=== PATIENT | male | born 1950 | race Caucasian/White ===

== ENCOUNTER 2018-09-19 04:57 | Inpatient (IN) ==
[2018-09-12 13:45] LABS: Appearance,Urine CLEAR; Bacteria,Urine 0 /hpf (0); Bilirubin,Urine NEG (NEG); Color,Urine YELLOW; Glucose,Urine (UA) NEGATIVE (NEG); Leukocyte Esterase,Urine NEG /uL (NEG); Mucus,Urine MANY /hpf (0); Protein,Urine 30 mg/dL (NEG); Specific Gravity,Urine 1.026 (1.000-1.035); Urine Blood NEG mg/dL (<0.03); Urine Hyaline Cast 2 /lpf (0-2); Urine RBC < 1 /hpf (0-1); Urine Squamous Epithelial Cell 2 /hpf (0-4); Urine Transitional Epi Cells < 1 /hpf (0-2); Urine WBC 2 /hpf (0-4); Urobilinogen,Urine NEG (NEG)
[2018-09-12 14:48] LABS: Basophils # (Auto) 0.1 K/mcL (0.0-0.3); Basophils % (Auto) 1.2 % (0.0-2.0); Eosinophils # (Auto) 0.3 K/mcL (0.0-0.7); Eosinophils % (Auto) 6.8 % (0.0-7.0); Granulocytes % (Auto) 71.2 % (38.0-78.0); Lymphocytes # (Auto) 0.5 K/mcL (1.5-4.8); Lymphocytes % (Auto) 11.9 % (15.5-49.0); Mean Cell Volume 85.3 fL (80.0-100.0); Mean Corpuscular HGB Conc 33.9 g/dL (31.0-36.0); Monocytes # (Auto) 0.4 K/mcL (0.1-0.9); Monocytes % (Auto) 8.9 % (1.0-12.0); Platelet Count 232 K/mcL (140-440); RBC 4.73 M/mcL (4.50-5.90); Red Cell Distribution Width 13.4 % (11.5-14.5)
[2018-09-12 14:52] LABS: Blood Urea Nitrogen 18 mg/dl (8-23)
[2018-09-19] MEDS ORDERED: ceFAZolin 2 GM in DEXTROSE 5% IN WATER 50 ML IV SCH (06:00)
[2018-09-19] MEDS ORDERED: oxyCODONE 10 MG TAB.ER.12H PO SCH (06:00)
[2018-09-19] MEDS ORDERED: PREGABALIN 75 MG CAPSULE PO SCH (06:00)
[2018-09-19] MEDS ORDERED: CELECOXIB 200 MG CAPSULE PO SCH (06:00)
[2018-09-19] MEDS ORDERED: 0.9 % SODIUM CHLORIDE 9 ML, KETOROLAC 30 MG, ROPIVACAINE HCL/PF 49.5 ML, EPINEPHrine 0.... IJ SCH (06:00)
[2018-09-19] MEDS ORDERED: GENTAMICIN SULFATE 800 MG/20 ML VIAL IR ONE (06:52)
[2018-09-19] MEDS ORDERED: ROPIVACAINE HCL/PF 20 ML VIAL IJ ONE (07:30)
[2018-09-19] MEDS ORDERED: LIDOCAINE HCL/PF 100 MG/5 ML SYRINGE IV ONE (07:30)
[2018-09-19] MEDS ORDERED: DEXAMETHASONE 4 MG/ML VIAL IV ONE (07:30)
[2018-09-19] MEDS ORDERED: PROPOFOL 200 MG/20 ML VIAL IV ONE (07:30)
[2018-09-19] MEDS ORDERED: ONDANSETRON 4 MG/2 ML VIAL IV ONE (07:30)
[2018-09-19] MEDS ORDERED: TRANEXAMIC ACID 1,000 MG/10 ML VIAL IV ONE (07:30)
[2018-09-19] MEDS ORDERED: MIDAZOLAM 5 MG/5 ML VIAL IV ONE (07:30)
[2018-09-19] MEDS ORDERED: ePHEDrine 50 MG/ML AMPUL IV ONE (07:30)
[2018-09-19] MEDS ORDERED: PHENYLEPHRINE 10 MG/ML VIAL IV ONE (07:30)
--- NOTE | 2018-09-19 09:35 | Brief Operative Note ---
Date of procedure: 09/19/18 Pre-op diagnosis: right knee osteoarthritis Post-op diagnosis: same Procedure: right total knee arthroplasty Grafts/Implants: Yes Anesthesia: spinal Complications: none Surgeon: Manjit Tim Calculus Professor: Anastasiya Madden Tourniquet Time (Minutes): 72 Specimens Removed/Pathology: none sent Condition: stable Disposition: PACU
[2018-09-19] MEDS ORDERED: FLEETS ADULT ENEMA PR PRN (09:36)
[2018-09-19] MEDS ORDERED: DEXTROSE 50% 50 ML VIAL IV PRN (09:36)
[2018-09-19] MEDS ORDERED: TRANEXAMIC ACID 1,000 MG/10 ML VIAL IV SCH (09:36)
[2018-09-19] MEDS ORDERED: MAGNESIUM HYDROXIDE 30 ML ORAL.SUSP PO PRN (09:36)
[2018-09-19] MEDS ORDERED: POLYETHYLENE GLYCOL 3350 17 GM PACKET PO PRN (09:36)
[2018-09-19] MEDS ORDERED: BISACODYL 10 MG SUPP.RECT PR PRN (09:36)
[2018-09-19] MEDS ORDERED: ONDANSETRON 4 MG/2 ML VIAL IV PRN ×2 (09:36→09:38)
[2018-09-19] MEDS ORDERED: DEXTROSE 31 GM ORAL.SUSP PO PRN (09:36)
[2018-09-19] MEDS ORDERED: BENZOCAINE/MENTHOL 1 LOZENGE PO PRN (09:36)
[2018-09-19] MEDS ORDERED: ONDANSETRON 4 MG ODT TABLET SL PRN (09:36)
[2018-09-19] MEDS ORDERED: MEPERIDINE 25 MG/ML SYRINGE IV PRN (09:38)
[2018-09-19] MEDS ORDERED: PROMETHAZINE 25 MG/ML VIAL IV PRN (09:38)
[2018-09-19] MEDS ORDERED: IPRATROPIUM/ALBUTEROL 3 ML AMPUL.NEB NEB PRN (09:38)
[2018-09-19] MEDS ORDERED: ACETAMINOPHEN 1,000 MG/100 ML BOTTLE IV ONE (09:38)
[2018-09-19] MEDS ORDERED: METHOCARBAMOL 1,000 MG/10 ML VIAL IV PRN (09:38)
[2018-09-19] MEDS ORDERED: fentaNYL 100 MCG/2 ML VIAL IV PRN (09:38)
[2018-09-19] MEDS ORDERED: LACTATED RINGERS 1,000 ML IV SCH (09:45)
--- NOTE | 2018-09-19 10:20 | XRay Report ---
CLINICAL INFORMATION: Postoperative follow-up TECHNIQUE: AP and crosstable lateral portable right knee COMPARISON: None. FINDINGS: Status post right total knee arthroplasty. Femoral and tibial components are in anatomic positions. There is postsurgical soft tissue and intra-articular gas. There is a focal density visualized only on AP view. This is at the lateral femoral tibial joint and is probably within extra-articular soft tissues rather than within the joint space. This could be calcification or methylmethacrylate IMPRESSION: Status post right total knee arthroplasty Interpreted and Authenticated by: Manjit Phelan 09/19/18
--- NOTE | 2018-09-19 10:44 | Operative Note ---
DATE OF OPERATION: 09/19/2018 PREOPERATIVE DIAGNOSIS: Degenerative joint disease, right knee. POSTOPERATIVE DIAGNOSIS: Degenerative joint disease, right knee. PROCEDURE: Right total knee arthroplasty. SURGEON: Bruce Tim M.D. EXPLOSIVES MIXER OPERATOR SURGEON: Anastasiya Madden PA-C. ANESTHESIA: Spinal with LMA assist. ESTIMATED BLOOD LOSS: 150 mL. COMPLICATIONS: None noted. SPECIMENS REMOVED: None. DRAINS: None. TOURNIQUET TIME: 72 minutes at 300 mmHg. IMPLANTS: DePuy Attune femoral posterior stabilized size 8 right, cemented; DePuy Attune tibial base fixed bearing size 7, cemented; DePuy Attune patella medialized dome 41 mm, cemented AOX; DePuy Attune tibial insert fixed bearing posterior stabilized size 8, 12 mm AOX; DePuy CMW2 gentamicin bone cement 20 grams x5. INDICATIONS: The patient has had a long-standing history of worsening pain in the knee that has failed conservative treatment. Radiographs have confirmed advanced degenerative joint disease. After a long discussion about treatment options, the patient elected to proceed with a knee arthroplasty. The risks and benefits were discussed with the patient in detail including, but not limited to, the risks of anesthesia, problems with the heart or lungs related to anesthesia, infection, compromise or injury to the nerves and blood vessels, deep venous thrombosis, pulmonary embolism, pneumonia, continued pain after surgery, worsening pain or symptoms after surgery, swelling, loss of motion, instability, leg length discrepancy, and need for repeat surgery. DESCRIPTION OF PROCEDURE: The patient was seen in the pre-anesthesia waiting room where all questions were answered and the correct side and site were identified and marked. The patient was transferred to the operating room and administered the anesthetic and given pre-operative antibiotics. A time-out was then called. The extremity was prepped and draped, exsanguinated, and the tourniquet was inflated to 300 mmHg. A midline skin incision was then made with a standard medial parapatellar arthrotomy. Debridement of the menisci, ACL, and PCL was performed followed by balancing releases in the medial lateral plane. We then established intramedullary access to both the femur and tibia in a standard fashion. The femoral guide carlton was initially placed with the distal femoral guide, pinned into place, and the distal femoral cut was performed and checked with a flat plate. We then turned our attention to the tibia. The intramedullary guide was placed with the proximal tibial cutting block. The block was appropriately positioned off the affected side, varus and valgus was checked with the extra-medullary guide, and the block was pinned into place. The proximal tibial cut was performed and the tibia was prepared for the tibial implant with appropriate rotation. The tibia, femur, and posterior compartment were debrided of osteophytes, loose bodies, and meniscal fragments We then used the gap balancing technique to balance extension with the first two cuts and good balancing was obtained with a 10 millimeter gap block. We turned our attention back to the femur and used the referencing block and implant to size appropriately. Using the gap balancing technique for the flexion space we set our rotation of the femur off the tibial cut. Anesthesia gave the patient 1 gram of Tranexamic Acid via an intravenous route. We placed the 4 in 1 cutting block and made anterior, posterior, and chamfer cuts. Box plasty cuts were then made in a standard fashion for the posterior stabilized prosthesis. We then completed osteophyte release and posterior capsule release from the posterior compartment. Trials were placed and we chose the polyethylene insert thickness that provided the best stability in all planes. With the trials in place, we did a measured resection for a resurfacing patella. We sized the patella and placed the patella trial and performed a lateral facetectomy with the saw and rongeur. Good tracking was obtained. We removed all trials, irrigated and dried all cut surfaces. We cemented the components into place including tibia, femur and patella. We placed a trial liner and held the knee in full extension with the patella compressed while the cement cured. We then removed all excess cement and placed the final polyethylene tibiofemoral component. Irrigation with 3 liters of antibiotic saline was then performed using jet-lavage. We let the tourniquet down and coagulated bleeding vessels. We injected a 100 cubic centimeter volume including Ropivacaine 49.25 cubic centimeters at 5 milligrams per cubic centimeter, Ketorolac 30 milligrams, and Epinephrine 0.5 milligrams into 100 cubic centimeters volume of normal saline. We closed the retinaculum with #2 Stratafix and 0 Vicryl. We closed the subcutaneous tissue and skin in layers out to Dermabond on the skin. A sterile pressure dressing was applied. All needle and sponge counts were correct. The patient was transferred to the recovery room in stable condition. NIKI:brigid Melvin: 09/19/2018 09:46:26 Job ID: [id number] Doc ID: [id number] Bruce Tim MD
[2018-09-19] MEDS: KETOROLAC 15 MG/ML VIAL IV SCH ×2 (11:36→17:23)
[2018-09-19] MEDS: HYDROcodone/APAP 10/325MG TABLET PO PRN ×2 (11:38→15:50)
[2018-09-19] MEDS: 0.9 % SODIUM CHLORIDE 1,000 ML IV SCH ×2 (11:40→18:38)
[2018-09-19] MEDS: INSULIN LISPRO 1 UNIT/0.01 ML UNIT SQ SCH ×3 (11:49→21:41)
[2018-09-19] MEDS: 0.9 % SODIUM CHLORIDE 10 ML SYRINGE IV SCH ×2 (15:42→21:53)
[2018-09-19] MEDS: ceFAZolin 1 GM VIAL IV SCH ×2 (15:42→22:26)
[2018-09-19] MEDS ORDERED: metFORMIN 500 MG TAB.XL.24H PO SCH (21:00)
[2018-09-19] MEDS ORDERED: TESTOSTERONE TOPICAL SCH (21:00)
[2018-09-19] MEDS ORDERED: SENNOSIDES 1 TABLET PO SCH (21:00)
[2018-09-19] MEDS: ASPIRIN 325 MG ENTERIC COATED TABLET PO SCH (21:29)
[2018-09-19] MEDS: DOCUSATE SODIUM 100 MG CAPSULE PO SCH (21:29)
[2018-09-20] MEDS: KETOROLAC 15 MG/ML VIAL IV SCH ×3 (00:15→11:46)
[2018-09-20] MEDS: HYDROcodone/APAP 10/325MG TABLET PO PRN ×5 (00:15→10:14)
[2018-09-20] MEDS: 0.9 % SODIUM CHLORIDE 1,000 ML IV SCH ×2 (01:04→09:56)
[2018-09-20] MEDS: METHOCARBAMOL 750 MG TABLET PO PRN ×2 (04:03→10:15)
[2018-09-20] MEDS: 0.9 % SODIUM CHLORIDE 10 ML SYRINGE IV SCH (05:20)
[2018-09-20] MEDS: INSULIN LISPRO 1 UNIT/0.01 ML UNIT SQ SCH ×2 (07:03→11:41)
--- NOTE | 2018-09-20 07:27 | Discharge Summary ---
Providers - Providers Patient information: Note initiated : 09/20/18 at 7:25 am Service Date, if different from initiated Date: [] Patient: Tee Torres 67 y/o M admitted on 09/19/18 for Right Total Knee Arthroplasty. Chief Complaint: [POD #1 s/p right TKA No pain. Denies CP, SOB, numbness, tingling. Ambulating well. ] Discharge date: 09/20/18 Hospitalization Hospital course: Patient was brought to OR on 09/19/18 for right TKA which went on without complication. Was then transferred to med surg floor for post op care. Will d/c to home today and follow up in 10-14 days for post op care Discharge diagnosis: knee osteoarthritis Exam - Exam Incision healing: Yes Incision draining: No Incision red: No Incision swollen: No Incision inflamed: No Clean and dry: Yes Weight bearing status: as tolerated Range of motion: full foot and ankle Ortho Discharge - TKA - Patient Instructions Diet: Regular Diet Activity: weight bearing as tolerated Total Knee Protocol: For Total Knee: Start ROM SUSSY with stationary bike or rocking chair. Work on gaining full extension of knee. Posterior dislocation precautions provided. Hip abductor strengthening and gait training instructions provided. Apply Cryocuff as instructed. Dressing Care: May shower in 2 days, Other (dermabond) Additional Instructions: CPM for home use. - Follow Up Plan Follow Up Appointments: Anastasiya Madden PA-C [Physician Account Executive Sales Representative] - 10/02/18 9:40 am Disposition: Home, Self-Care Prognosis: Good Rehab Potential: Good I certify that the patient requires SNF services: No Overall status at discharge: patient is progressing back to baseline - Orders For Discharge Prescriptions: Aspirin [Ecotrin] 325 mg PO BID #60 tab.ec HYDROcodone/APAP 10/325MG [[place] 10-325Mg] 1 - 2 tab PO Q4HP PRN #60 tab PRN Reason: Pain Level 3-6 Additional Discharge Orders: Physical Therapy at Discharge - TKA Location: None Selected CPM Discharge Order Location: None Selected Walker Location: None Selected Pending Studies Resuscitation Status Full Code Diet Regular Diet Start TueSep 19 0937 Hydrocodone Bitart/Acetaminophen ([place] 10/325mg) 0 tab PO Q4HP PRN PRN Reason: PAIN LEVEL 3-6 Last Admin: 09/20/18 05:56 Dose: 1 tab Documented by: Admin: 09/20/18 04:03 Dose: 1 tab Documented by: Admin: 09/20/18 00:15 Dose: 1 tab Documented by: Admin: 09/19/18 15:50 Dose: 1 tab Documented by: Admin: 09/19/18 11:38 Dose: 1 tab Documented by: PARESH Aspirin (Ecotrin) 325 mg PO BID [facility] Last Admin: 09/19/18 21:29 Dose: 325 mg Documented by: MANDA Diagnostic Test (Pha) (Accu-Chek) 1 each FS [facility] Last Admin: 09/20/18 06:50 Dose: 1 each Documented by: LANA Cosigned by: [email or web address] Admin: 09/19/18 21:32 Dose: 1 each Documented by: Admin: 09/19/18 17:24 Dose: 1 each Documented by: Admin: 09/19/18 11:44 Dose: 1 each Documented by: PARESH Docusate Sodium (Colace) 100 mg PO BID [facility] Last Admin: 09/19/18 21:29 Dose: 100 mg Documented by: MANDA Sodium Chloride (Sodium Chloride 0.9%) 1,000 mls @ 125 mls/hr IV .Q8H [facility] Last Admin: 09/20/18 01:04 Dose: Not Given Documented by: Admin: 09/19/18 18:38 Dose: Not Given Documented by: Admin: 09/19/18 11:40 Dose: 125 mls/hr Documented by: PARESH Insulin Human Lispro (Humalog) 0 unit SQ [facility]; Protocol Last Admin: 09/20/18 07:03 Dose: 2 unit Documented by: LANA Cosigned by: [email or web address] Admin: 09/19/18 21:41 Dose: 4 unit Documented by: Admin: 09/19/18 17:23 Dose: 4 unit Documented by: Admin: 09/19/18 11:49 Dose: 6 unit Documented by: [email or web address] Ketorolac Tromethamine (Toradol) 15 mg IV Q6 [facility] Stop: 09/21/18 06:01 Last Admin: 09/20/18 05:19 Dose: 15 mg Documented by: Admin: 09/20/18 00:15 Dose: 15 mg Documented by: Admin: 09/19/18 17:23 Dose: 15 mg Documented by: [email or web address] Admin: 09/19/18 11:36 Dose: 15 mg Documented by: [email or web address] Metformin HCl (Glucophage) 500 mg PO [facility] Last Admin: 09/19/18 21:30 Dose: 500 mg Documented by: MANDA Methocarbamol (Robaxin) 750 mg PO Q6HP PRN PRN Reason: Muscle Spasm Last Admin: 09/20/18 04:03 Dose: 750 mg Documented by: MANDA Testosterone [ Androgel] 1.25 Gm Gel 1 dose TOPICAL [facility] Last Admin: 09/19/18 21:52 Dose: Not Given Documented by: MANDA Senna (Senokot) 2 tab PO [facility] Last Admin: 09/19/18 21:29 Dose: 2 tab Documented by: MANDA Sodium Chloride (Saline Flush) 10 ml IV Q8 [facility] Last Admin: 09/20/18 05:20 Dose: 10 ml Documented by: Admin: 09/19/18 21:53 Dose: Not Given Documented by: Admin: 09/19/18 15:42 Dose: Not Given Documented by: [email or web address] Shift Summary 09/20/18 03:34 Shift Summary by Valeria Mendez Pt up to bathroom with SBA. Pt voiding QS. Pt receiving 1 [place] for pain. Last dose at 4am with Robaxin. Pt receiving scheduled Toradol. Pt in CPM for 4 hours up to 75 deg. Pt would like home CPM. Dr. Mccray aware and orders placed in EMR but paper order needs to be signed by MD on discharge. Pt ambulated in hallway last evening to nursing station and back. Will update with verbal report. Initialized on 09/20/18 03:34 - END OF NOTE
[2018-09-20] MEDS ORDERED: FLUTICASONE PROPIONATE SPRAY.NAS NS SCH (09:00)
[2018-09-20] MEDS ORDERED: amLODIPine 5 MG TABLET PO SCH (09:00)
[2018-09-20] MEDS ORDERED: LISINOPRIL 10 MG TABLET PO SCH (09:00)
[2018-09-20] MEDS: ASPIRIN 325 MG ENTERIC COATED TABLET PO SCH (09:24)
[2018-09-20] MEDS: DOCUSATE SODIUM 100 MG CAPSULE PO SCH (09:24)
== END 2018-09-20 12:30 | disposition home or self-care (01) | DRG 941 ==
LOC: MEDSUR 04:57
PROVIDERS: ADMIT Orthopaedic Surgery Sports Medicine; ATTEND Orthopaedic Surgery Sports Medicine

== ENCOUNTER 2018-12-19 10:48 | Inpatient (IN) ==
[2018-12-14 16:48] LABS: Basophils # (Auto) 0.1 K/mcL (0.0-0.3); Basophils % (Auto) 1.5 % (0.0-2.0); Eosinophils # (Auto) 0.3 K/mcL (0.0-0.7); Eosinophils % (Auto) 5.6 % (0.0-7.0); Granulocytes % (Auto) 69.6 % (38.0-78.0); Hematocrit 42.7 % (41.0-55.0); Hemoglobin 13.9 g/dL (13.5-16.5); Lymphocytes # (Auto) 0.7 K/mcL (1.5-4.8); Lymphocytes % (Auto) 13.9 % (15.5-49.0); Mean Cell Volume 84.8 fL (80.0-100.0); Mean Corpuscular HGB Conc 32.6 g/dL (31.0-36.0); Mean Platelet Volume 9.1 fL (7.4-10.4); Monocytes # (Auto) 0.5 K/mcL (0.1-0.9); Monocytes % (Auto) 9.4 % (1.0-12.0); Platelet Count 208 K/mcL (140-440); RBC 5.03 M/mcL (4.50-5.90); WBC 5.1 K/mcL (4.5-11.0)
[2018-12-14 16:48] LABS: Appearance,Urine CLEAR; Bilirubin,Urine NEG (NEG); Color,Urine YELLOW; Culture Indicated,Urine NO; Glucose,Urine (UA) NEGATIVE (NEG); Ketones,Urine NEG (NEG); Leukocyte Esterase,Urine NEG /uL (NEG); Nitrate,Urine NEG (NEG); Protein,Urine NEG (NEG); Specific Gravity,Urine 1.021 (1.000-1.035); Urine Blood NEG mg/dL (<0.03); Urobilinogen,Urine NEG (NEG)
[2018-12-14 16:56] LABS: Prothrombin Time 13.4 sec (11.9-14.5)
[2018-12-14 17:05] LABS: Blood Urea Nitrogen 17 mg/dl (8-23); Calcium 9.4 mg/dl (8.6-10.4); Carbon Dioxide 27 mmol/L (22-30); Chloride 99 mmol/L (96-108); Glomerular Filtration Rate 69; Glucose 123 mg/dL (70-105)
[2018-12-14 17:11] LABS: Estimated Average Glucose(eAG) 126 mg/dL
[~2018-12-19 10:48] MED LIST: 0.9 % SODIUM CHLORIDE 9 ML, KETOROLAC 30 MG, ROPIVACAINE HCL/PF 49.5 ML, EPINEPHrine 0.... IJ SCH; CELECOXIB 200 MG CAPSULE PO SCH; PREGABALIN 75 MG CAPSULE PO SCH; ceFAZolin 2 GM in DEXTROSE 5% IN WATER 50 ML IV SCH; oxyCODONE 10 MG TAB.ER.12H PO SCH
[2018-12-19] MEDS ORDERED: SCOPOLAMINE 1 PATCH PATCH TOPICAL PRN (11:00)
[2018-12-19] MEDS ORDERED: IPRATROPIUM/ALBUTEROL 3 ML AMPUL.NEB NEB PRN ×2 (11:00→14:44)
[2018-12-19] MEDS ORDERED: GLYCOPYRROLATE 0.2 MG/ML VIAL IV ONE (13:12)
[2018-12-19] MEDS ORDERED: fentaNYL 100 MCG/2 ML VIAL IV ONE (13:12)
[2018-12-19] MEDS ORDERED: TRANEXAMIC ACID 1,000 MG/10 ML VIAL IV ONE ×2 (13:12→15:13)
[2018-12-19] MEDS ORDERED: ONDANSETRON 4 MG/2 ML VIAL IV ONE (13:12)
[2018-12-19] MEDS ORDERED: KETAMINE 100 MG/ML ML IV ONE (13:12)
[2018-12-19] MEDS ORDERED: PROPOFOL 200 MG/20 ML VIAL IV ONE (13:12)
[2018-12-19] MEDS ORDERED: LIDOCAINE HCL/PF 100 MG/5 ML SYRINGE IV ONE (13:12)
[2018-12-19] MEDS ORDERED: MIDAZOLAM 5 MG/5 ML VIAL IV ONE (13:12)
[2018-12-19] MEDS ORDERED: SUCCINYLCHOLINE 20 MG/ML ML IV ONE (13:12)
[2018-12-19] MEDS ORDERED: ROPIVACAINE HCL/PF 30 ML VIAL IJ ONE (13:12)
[2018-12-19] MEDS ORDERED: GENTAMICIN SULFATE 800 MG/20 ML VIAL IR ONE (13:45)
[2018-12-19] MEDS ORDERED: fentaNYL 100 MCG/2 ML VIAL IV PRN (14:44)
[2018-12-19] MEDS ORDERED: ONDANSETRON 4 MG/2 ML VIAL IV PRN ×2 (14:44→15:13)
[2018-12-19] MEDS ORDERED: ACETAMINOPHEN 1,000 MG/100 ML BOTTLE IV ONE (14:44)
[2018-12-19] MEDS ORDERED: MEPERIDINE 25 MG/ML SYRINGE IV PRN (14:44)
[2018-12-19] MEDS ORDERED: METHOCARBAMOL 1,000 MG/10 ML VIAL IV PRN (14:44)
[2018-12-19] MEDS ORDERED: LACTATED RINGERS 1,000 ML IV SCH (14:45)
[2018-12-19] MEDS ORDERED: POLYETHYLENE GLYCOL 3350 17 GM PACKET PO PRN (15:13)
[2018-12-19] MEDS ORDERED: DEXTROSE 50% 50 ML VIAL IV PRN (15:13)
[2018-12-19] MEDS ORDERED: ONDANSETRON 4 MG ODT TABLET SL PRN (15:13)
[2018-12-19] MEDS ORDERED: FLEETS ADULT ENEMA PR PRN (15:13)
[2018-12-19] MEDS ORDERED: BISACODYL 10 MG SUPP.RECT PR PRN (15:13)
[2018-12-19] MEDS ORDERED: DEXTROSE 31 GM ORAL.SUSP PO PRN (15:13)
[2018-12-19] MEDS ORDERED: MAGNESIUM HYDROXIDE 30 ML ORAL.SUSP PO PRN (15:13)
[2018-12-19] MEDS ORDERED: METHOCARBAMOL 750 MG TABLET PO PRN (15:13)
[2018-12-19] MEDS ORDERED: BENZOCAINE/MENTHOL 1 LOZENGE PO PRN (15:13)
--- NOTE | 2018-12-19 15:13 | Brief Operative Note ---
Date of procedure: 12/19/18 Pre-op diagnosis: left knee osteoarthritis Post-op diagnosis: same Procedure: left total knee arthroplasty Grafts/Implants: Yes Anesthesia: spinal Complications: none Surgeon: Manjit Tim Mannequin Decorator: Anastasiya Madden Estimated blood loss (cc): 200 Tourniquet Time (Minutes): 69 Specimens Removed/Pathology: none sent Condition: stable Disposition: PACU
--- NOTE | 2018-12-19 15:32 | Operative Note ---
DATE OF OPERATION: 12/19/2018 PREOPERATIVE DIAGNOSIS: Degenerative joint disease, left knee. POSTOPERATIVE DIAGNOSIS: Degenerative joint disease, left knee. PROCEDURE: Left total knee arthroplasty. SURGEON: Bruce Tim M.D. DENTAL NURSE SURGEON: Anastasiya Madden PA-C. The PA's assistance was required for the safe and efficient completion of the entire case. This provider's expertise and technical skill were required throughout the case. The PA assisted with preoperative coordination, intraoperative retraction, wound closure, dressing and splint application, as well as postoperative documentation and care coordination. ANESTHESIA: Spinal with LMA assist. ESTIMATED BLOOD LOSS: 200 mL. COMPLICATIONS: None noted. SPECIMENS REMOVED: None. DRAINS: None. TOURNIQUET TIME: 69 minutes at 300 mmHg. IMPLANTS: DePuy Attune tibial base fixed bearing size 7, cemented; DePuy Attune femoral posterior stabilized size 8, left, cemented; DePuy Attune tibial insert fixed bearing posterior stabilized size 8, 7 mm AOX; DePuy Attune patella medialized dome 38 mm cemented AOX; DePuy CMW2 gentamicin bone cement 20 grams x5. INDICATIONS: The patient has had a long-standing history of worsening pain in the knee that has failed conservative treatment. Radiographs have confirmed advanced degenerative joint disease. After a long discussion about treatment options, the patient elected to proceed with a knee arthroplasty. The risks and benefits were discussed with the patient in detail including, but not limited to, the risks of anesthesia, problems with the heart or lungs related to anesthesia, infection, compromise or injury to the nerves and blood vessels, deep venous thrombosis, pulmonary embolism, pneumonia, continued pain after surgery, worsening pain or symptoms after surgery, swelling, loss of motion, instability, leg length discrepancy, and need for repeat surgery. DESCRIPTION OF PROCEDURE: The patient was seen in the pre-anesthesia waiting room where all questions were answered and the correct side and site were identified and marked. The patient was transferred to the operating room and administered the anesthetic and given pre-operative antibiotics. A time-out was then called. The extremity was prepped and draped, exsanguinated, and the tourniquet was inflated to 300 mmHg. A midline skin incision was then made with a standard medial parapatellar arthrotomy. Debridement of the menisci, ACL, and PCL was performed followed by balancing releases in the medial lateral plane. We then established intramedullary access to both the femur and tibia in a standard fashion. The femoral guide carlton was initially placed with the distal femoral guide, pinned into place, and the distal femoral cut was performed and checked with a flat plate. We then turned our attention to the tibia. The intramedullary guide was placed with the proximal tibial cutting block. The block was appropriately positioned off the affected side, varus and valgus was checked with the extra-medullary guide, and the block was pinned into place. The proximal tibial cut was performed and the tibia was prepared for the tibial implant with appropriate rotation. The tibia, femur, and posterior compartment were debrided of osteophytes, loose bodies, and meniscal fragments We then used the gap balancing technique to balance extension with the first two cuts and good balancing was obtained with a 10 millimeter gap block. We turned our attention back to the femur and used the referencing block and implant to size appropriately. Using the gap balancing technique for the flexion space we set our rotation of the femur off the tibial cut. Anesthesia gave the patient 1 gram of Tranexamic Acid via an intravenous route. We placed the 4 in 1 cutting block and made anterior, posterior, and chamfer cuts. Box plasty cuts were then made in a standard fashion for the posterior stabilized prosthesis. We then completed osteophyte release and posterior capsule release from the posterior compartment. Trials were placed and we chose the polyethylene insert thickness that provided the best stability in all planes. With the trials in place, we did a measured resection for a resurfacing patella. We sized the patella and placed the patella trial and performed a lateral facetectomy with the saw and rongeur. Good tracking was obtained. We removed all trials, irrigated and dried all cut surfaces. We cemented the components into place including tibia, femur and patella. We placed a trial liner and held the knee in full extension with the patella compressed while the cement cured. We then removed all excess cement and placed the final polyethylene tibiofemoral component. Irrigation with 3 liters of antibiotic saline was then performed using jet-lavage. We let the tourniquet down and coagulated bleeding vessels. We injected a 100 cubic centimeter volume including Ropivacaine 49.25 cubic centimeters at 5 milligrams per cubic centimeter, Ketorolac 30 milligrams, and Epinephrine 0.5 milligrams into 100 cubic centimeters volume of normal saline. We closed the retinaculum with #2 Stratafix and 0 Vicryl. We closed the subcutaneous tissue and skin in layers out to Dermabond on the skin. A sterile pressure dressing was applied. All needle and sponge counts were correct. The patient was transferred to the recovery room in stable condition. NIKI:brigid Job ID: [id number] Doc ID: [id number] Bruce Tim MD
--- NOTE | 2018-12-19 16:49 | XRay Report ---
CLINICAL INFORMATION: Post-Op Total Knee COMPARISON: None. FINDINGS: Total knee prosthesis is anatomically aligned. No osseous abnormalities. Periarticular soft tissue swelling and gas seen as expected. IMPRESSION: Negative Interpreted and Authenticated by: Manjit Lee 12/19/18
[2018-12-19] MEDS: 0.9 % SODIUM CHLORIDE 1,000 ML IV SCH ×2 (17:24→23:24)
[2018-12-19] MEDS ORDERED: metFORMIN 500 MG TAB.XL.24H PO SCH (17:30)
[2018-12-19] MEDS: INSULIN LISPRO 1 UNIT/0.01 ML UNIT SQ SCH ×2 (17:37→21:39)
[2018-12-19] MEDS: KETOROLAC 15 MG/ML VIAL IV SCH ×2 (17:38→23:24)
[2018-12-19] MEDS: ASPIRIN 81 MG TAB.CHEW PO SCH (20:08)
[2018-12-19] MEDS: DOCUSATE SODIUM 100 MG CAPSULE PO SCH (20:08)
[2018-12-19] MEDS: HYDROcodone/APAP 10/325MG TABLET PO PRN (20:09)
[2018-12-19] MEDS: 0.9 % SODIUM CHLORIDE 10 ML SYRINGE IV SCH (20:11)
[2018-12-19] MEDS ORDERED: TESTOSTERONE TD SCH (21:00)
[2018-12-19] MEDS ORDERED: SENNOSIDES 1 TABLET PO SCH (21:00)
[2018-12-19] MEDS: ceFAZolin 1 GM VIAL IV SCH (21:39)
[2018-12-20] MEDS: HYDROcodone/APAP 10/325MG TABLET PO PRN ×2 (03:09→10:55)
[2018-12-20] MEDS: 0.9 % SODIUM CHLORIDE 10 ML SYRINGE IV SCH (04:41)
[2018-12-20] MEDS: ceFAZolin 1 GM VIAL IV SCH (04:41)
[2018-12-20] MEDS: KETOROLAC 15 MG/ML VIAL IV SCH ×2 (05:20→14:22)
[2018-12-20 06:01] LABS: Hematocrit 33.1 % (41.0-55.0)
--- NOTE | 2018-12-20 07:08 | Discharge Summary ---
Providers - Providers Patient information: Note initiated : 12/20/18 at 7:05 am Service Date, if different from initiated Date: [] Patient: Tee Torres 68 y/o M admitted on 12/19/18 for Left Total Knee Arthroplasty. Chief Complaint: [POD #1 s/p left TKA Doing well, ambulating well, pain well controlled. Denies CP, SOB, numbness, tingling, calf pain] Date of admission: 12/19/18 Discharge date: 12/20/18 Attending physician: Manjit Tim Hospitalization Hospital course: Patient brought to OR on 12/19/18 for left TKA which went on without complication. Was admitted overnight for observation and pain control. Will discharge to home today and follow up in office in 10-14 days. Discharge diagnosis: knee osteoarthritis Exam - Exam Incision healing: Yes Incision draining: No Incision red: No Incision swollen: No Incision inflamed: No Clean and dry: Yes Weight bearing status: as tolerated Range of motion: full foot and ankle Ortho Discharge - TKA - Patient Instructions Diet: Regular Diet Activity: weight bearing as tolerated Total Knee Protocol: For Total Knee: Start ROM SUSSY with stationary bike or rocking chair. Work on gaining full extension of knee. Posterior dislocation precautions provided. Hip abductor strengthening and gait training instructions provided. Apply Cryocuff as instructed. Dressing Care: Other (dermabond) - Follow Up Plan Follow Up Appointments: Anastasiya Madden PA-C [Physician Olericulture Professor] - (10-14 days) Disposition: Home, Self-Care Prognosis: Good Rehab Potential: Good I certify that the patient requires SNF services: No Overall status at discharge: patient is progressing back to baseline - Orders For Discharge Prescriptions: Aspirin 81 mg PO BID #28 tab.chew HYDROcodone/APAP 10/325MG [[place] 10-325Mg] 1 - 2 tab PO Q4HP PRN #60 tab PRN Reason: Pain Level 3-6 Additional Discharge Orders: Physical Therapy at Discharge - TKA Location: None Selected CPM Discharge Order Location: None Selected Walker Location: None Selected Pending Studies Resuscitation Status Full Code Diet Regular Diet Start TueDec 19 1513 Hydrocodone Bitart/Acetaminophen ([place] 10/325mg) 0 tab PO Q4HP PRN PRN Reason: PAIN LEVEL 3-6 Last Admin: 12/20/18 03:09 Dose: 1 tab Documented by: Admin: 12/19/18 20:09 Dose: 1 tab Documented by: SOMMER Aspirin (Aspirin) 81 mg PO BID [facility] Last Admin: 12/19/18 20:08 Dose: 81 mg Documented by: SOMMER Diagnostic Test (Pha) (Accu-Chek) 1 each FS [facility] Last Admin: 12/19/18 21:27 Dose: 1 each Documented by: Admin: 12/19/18 17:23 Dose: 1 each Documented by: PARESH Docusate Sodium (Colace) 100 mg PO BID [facility] Last Admin: 12/19/18 20:08 Dose: 100 mg Documented by: SOMMER Sodium Chloride (Sodium Chloride 0.9%) 1,000 mls @ 125 mls/hr IV .Q8H [facility] Last Admin: 12/19/18 23:24 Dose: 125 mls/hr Documented by: Infusion: 12/19/18 23:24 Dose: 125 mls/hr Documented by: Admin: 12/19/18 17:24 Dose: 125 mls/hr Documented by: PARESH Insulin Human Lispro (Humalog) 0 unit SQ [facility]; Protocol Last Admin: 12/19/18 21:39 Dose: 2 unit Documented by: Admin: 12/19/18 17:37 Dose: 4 unit Documented by: PARESH Ketorolac Tromethamine (Toradol) 15 mg IV Q6 [facility] Stop: 12/21/18 12:01 Last Admin: 12/20/18 05:20 Dose: 15 mg Documented by: Admin: 12/19/18 23:24 Dose: 15 mg Documented by: Admin: 12/19/18 17:38 Dose: 15 mg Documented by: PARESH Metformin HCl (Glucophage) 500 mg PO QPMCC [facility] Last Admin: 12/19/18 17:38 Dose: 500 mg Documented by: PARESH Methocarbamol (Robaxin) 750 mg PO Q6HP PRN PRN Reason: Muscle Spasm Last Admin: 12/19/18 20:08 Dose: 750 mg Documented by: SOMMER Ondansetron HCl (Zofran) 4 mg IV Q4HP PRN PRN Reason: Nausea And Vomiting Last Admin: 12/19/18 17:48 Dose: 4 mg Documented by: [email or web address] Senna (Senokot) 2 tab PO HS [facility] Last Admin: 12/19/18 20:08 Dose: 2 tab Documented by: SOMMER Sodium Chloride (Saline Flush) 10 ml IV Q8 [facility] Last Admin: 12/20/18 04:41 Dose: Not Given Documented by: Admin: 12/19/18 20:11 Dose: Not Given Documented by: SOMMER Shift Summary 12/20/18 03:42 Shift Summary by Nan James a/o x4, very pleasant, up with sba /fww, tolerated walk to and from nursing station, cpm applied at 0300 at 40 degrees, dressing to left knee steff wrap c/d/i, using IS and foot pumps, has denied need of cryo cuff, iv to left fa. tolerating good and fluids well, last bladder scan at 27 ml, no bm, ac/hs blood sugar checks, at hs was 153, pain has been well controlled with Robaxin /[place],/ Toradol,will receive 2nd dose of Ancef this am. Initialized on 12/20/18 03:42 - END OF NOTE
[2018-12-20] MEDS ORDERED: amLODIPine 5 MG TABLET PO SCH (09:00)
[2018-12-20] MEDS ORDERED: FLUTICASONE PROPIONATE SPRAY.NAS NS SCH (09:00)
[2018-12-20] MEDS ORDERED: LISINOPRIL 10 MG TABLET PO SCH (09:00)
[2018-12-20] MEDS: 0.9 % SODIUM CHLORIDE 1,000 ML IV SCH (09:26)
[2018-12-20] MEDS: INSULIN LISPRO 1 UNIT/0.01 ML UNIT SQ SCH ×2 (09:43→14:22)
[2018-12-20] MEDS: ASPIRIN 81 MG TAB.CHEW PO SCH (10:56)
[2018-12-20] MEDS: DOCUSATE SODIUM 100 MG CAPSULE PO SCH (10:57)
== END 2018-12-20 12:30 | disposition home or self-care (01) | DRG 470 ==
LOC: MEDSUR 10:48
PROVIDERS: ADMIT Orthopaedic Surgery Sports Medicine; ATTEND Orthopaedic Surgery Sports Medicine